=== PATIENT | male | born 1970 | race African-American/Black ===

== ENCOUNTER 2018-09-26 13:40 | Observation (INO) ==
[2018-09-26] MEDS ORDERED: BENADRYL IV ONE (14:07)
[2018-09-26] MEDS ORDERED: EPINEPHRINE IM ONE (14:07)
[2018-09-26] MEDS ORDERED: SOLU-MEDROL IV ONE (14:07)
--- NOTE | 2018-09-26 14:35 | Diag Imaging Result Doc PS360 ---
EXAM: CHEST-1 VIEW 09/26/2018 HISTORY: angioedema TECHNIQUE: AP portable at 1441 COMMENT: There is no evidence of acute cardiac or pulmonary disease. Compared to 10/10/2015 there has been no significant change in the appearance of the chest. IMPRESSION: No evidence of acute disease. Electronically signed by Laron Paredes 09/26/2018 2:32 PM
--- NOTE | 2018-09-26 14:37 | PROVIDER DOCUMENTATION ---
This chart was entered by Ja Chen Scribe, acting as scribe for Mahesh Warren MD. HPI-General Adult - General Chief Complaint: General Adult Stated Complaint: ALLERGIC REACTION Time Seen by Provider: 09/26/18 13:58 Source: patient Allergies/Adverse Reactions: Patient Allergies Allergy/AdvReac Type Severity Reaction Status Date / Time No Known Allergies Allergy Verified 05/01/15 16:38 Home Medications: Home Medication List Medication Instructions Recorded Confirmed Last Taken Type Lisinopril/Hydrochlorothiazide 1 each PO DAILY #30 tablet 01/19/15 03/20/15 03/19/15 10:30 Rx [Lisinopril-Hctz 10-12.5 mg Tab] Oxycodone E.r. [Oxycontin] 10 mg PO TID PRN PRN 01/19/15 03/20/15 01/19/15 History Escitalopram Oxalate [Lexapro] 20 mg PO DAILY 03/20/15 03/20/15 03/19/15 10:30 History Methocarbamol [Robaxin-750] 750 mg PO TID PRN PRN #30 tablet 03/20/15 Unknown Rx Naproxen 500 mg PO BID AC #30 tablet 03/20/15 Unknown Rx Hydrocodone/Acetaminophen [[place] 1 each PO Q6H #14 tablet 10/10/15 Unknown Rx 5-325 Tablet] - History of Present Illness -Gen Adult Nature of Presenting Problems: Pt is a 48 yom who presents to the ED with a CC of severe allergic reaction. Pt states he took a Lisinopril today and his face and mouth began swelling after taking it. Pt reports a hx of HTN, PTSD, and depression. Location of Pain/Injury: reports: head, face, mouth Quality of Pain: reports: other (Swelling) Severity: reports: severe Onset/Duration: reports: just prior to arrival, 1/2 hour ago Timing: reports: still present Associated Symptoms: reports: other (Swelling) Similar Symptoms Previously?: No Recently seen or treated by another doctor?: No Review of Systems - Adult - REVIEW OF SYSTEMS - ADULT Constitutional: reports: see HPI Eyes: reports: no symptoms reported Ears, Nose, Mouth & Throat: reports: see HPI, mouth swelling Cardiovascular: reports: no symptoms reported Respiratory: reports: no symptoms reported Gastrointestinal: reports: no symptoms reported Genitourinary: reports: no symptoms reported Musculoskeletal: reports: no symptoms reported Integumentary: reports: see HPI Neurological: reports: no symptoms reported Psychiatric: reports: no symptoms reported Endocrine: reports: no symptoms reported Hematologic/Lymphatic: reports: no symptoms reported Allergic/Immunologic: reports: see HPI, allergic reactions All Other Systems: Reviewed and Negative Past History - Adult - PAST MEDICAL HISTORY-ADULT Review of Records: reports: Old Records Reviewed, Nursing Assessment Review, Medications Reviewed, Social history reviewed & non-contributory. Major Childhood Illnesses: reports: denies history Cardiovascular: reports: HTN Respiratory: reports: denies history Gastrointestinal: reports: denies history Obstetrical/Gynecological: reports: denies history Genitourinary: reports: denies history Musculoskeletal: reports: denies history Neurological: reports: denies history Psychiatric: reports: depression, ptsd Endocrine/Immune: reports: denies history Other Conditions: reports: skin disorder - PRIOR SURGERIES/PROCEDURES Surgical/Procedure History: reports: orthopedic (extremity) (Left knee) - PRIOR HOSPITALIZATIONS Prior Hospitalizations: reports: none - IMMUNIZATION STATUS Childhood Immunizations: See Nurse Assessment Flu Vaccine: See Nurse Assessment - FAMILY HISTORY Family History: reviewed, not pertinent - SOCIAL HISTORY Smoking: cigarettes, less than 1 pack/day Substance Use: alcohol Alcohol Use Frequency: occasionally Physical Exam-General - PHYSICAL EXAM-ADULT Initial Vital Signs Reviewed: Yes - CONSTITUTIONAL General Appearance: alert, moderate distress - EYES Eyes: PERRL/EOMI, pink conjunctivae - NECK Neck: non-tender, full range of motion - RESPIRATORY Respiratory: chest non-tender, lungs clear, normal breath sounds, no pleuratic chest pain, no respiratory distress - CARDIOVASCULAR Cardiovascular: normal peripheral pulses, regular rate, rhythm, no edema, no gallop, no JVD - GASTROINTESTINAL (ABDOMEN) Abdominal Exam: non tender, soft - MUSCULOSKELETAL Extremity: normal range of motion, non-tender - SKIN Integumentary: swelling - NEUROLOGIC Neurologic: grossly normal - PSYCHIATRIC Psych/Mental Status: normal mood/affect, normal thought content, normal thought process, oriented x 3 Progress - PLAN OF CARE/RESULTS Progress/Plan/Lab Results: Vital Signs - 8 hr 09/26/18 13:46 Temperature 98.4 F Pulse Rate 81 Respiratory Rate 18 Blood Pressure 156/99 O2 Sat by Pulse Oximetry 96 Orders Category Date Time Status Diphenhydramine [Benadryl] Med 09/26/18 14:07 Once 25 mg IV NOW ONE Epinephrine Med 09/26/18 14:07 Once 0.3 mg IM NOW ONE Methylprednisolone Sod Succ [Solu-Medrol] Med 09/26/18 14:07 Once 125 mg IV NOW ONE At recheck pt still has no oral airway edema and denies any difficulty swallowing or breathing. - CONSULTS/PCP/HOSPITALIST Notification #1 *Consult/PCP/Hospitalist*: Wendy TAXI DANCER for Dr Mark Time Discussed: 14:34 Consult Disposition: Will see in ED (transfer to [facility] [place] for ICU admit.), Admit Departure - Departure Date of Disposition Decision: 09/26/18 Time of Disposition Decision: 14:35 DIAGNOSIS: Angioedema Disposition: ADMITTED INPATIENT 09 Certified Medical Emergency: Emergent Condition: Serious Additional Freetext Instructions: ED Follow Up Instructions: You have been treated by a care provider in the Emergency Department. These instructions are being provided to you so you can have an understanding of how to care for yourself upon discharge. Upon discharge from the Emergency Department, you are responsible for making arrangements for follow-up care by a physician of your choice. Take all prescribed medications as directed. Return to the Emergency Department immediately for any new or worsening symptoms. You may call the Physician Referral phone number at [phone] to obtain a list of Physicians who are taking new patients. Referrals and Follow-Ups: Harika David [Primary Care Provider] - - Critical Care Note This patient required my direct & personal management of CC.: Yes Total Time (mins): 45 Critical Care Statement: This patient required my direct personal management to treat or rule out processes, the absence of which, could potentiallly result in sudden, clinically significant life or limb threatening deterioration. Attestation - Physician/ CEE Attestation Patient care was provided by Advanced Practice Provider:: No The physician spent face to face time with patient:: Yes Advanced Practice Provider documentation review:: Supervising physician onsite and consulted in the evaluation and care of this patient. The physician did have a face to face encounter with the patient. This chart was documented by the indicated scribe, (Ja Chen Scribe) and accurately reflects the services I performed and decisions made by me, Mahesh Warren MD, as attested by the provider's signature.
[2018-09-26 15:10] LABS: BASO# 0.03 X1000 (0.0-0.2); BASO% 0.3 % (0.0-0.8); EOS# 0.33 X1000 (0.0-0.7); EOS% 3.6 % (0.0-10.0); HEMATOCRIT 43.7 % (42.0-52.0); HEMOGLOBIN 15.1 g/dL (14.0-18.0); IMM GRAN# 0.01 X1000 (0.0-0.04); IMM GRAN% 0.1 % (0.0-0.5); LYMPH# 3.03 X1000 (1.2-3.4); LYMPH% 33.2 % (20.5-51.1); MCH 30.4 PG (27-31); MCHC 34.6 g/dL (33-37); MCV 88.1 FL (81-99); MONO# 0.88 X1000 (0.11-0.59); MONO% 9.6 % (1.7-9.3); MPV 10.2 FL (7.4-10.4); NEUT# 4.86 X1000 (1.4-6.5); NEUT% 53.2 % (42.2-75.2); PLT 303 X1000 (130-400); RBC 4.96 XMIL (4.7-6.1); RDW 12.6 % (11.5-14.5); WBC 9.14 X1000 (4.8-10.8)
[2018-09-26 15:19] LABS: SODIUM 138 mmol/L (136-145)
[2018-09-26 15:20] LABS: AGAP 12; ALBUMIN 4.6 g/dL (3.5-5.0); ALKALINE PHOSPHATASE 64 U/L (32-122); BUN 14 mg/dL (8-22); CHLORIDE 100 mmol/L (98-107); COSMO 276; CREATININE 1.1 mg/dL (0.7-1.2); ESTIMATED GFR > 60; GLUCOSE 101 mg/dL (70-104); GOT 27 U/L (10-34); GPT 17 U/L (10-44); POTASSIUM 4.3 mmol/L (3.5-5.1); TCO2 26 mmol/L (25-35); TOTAL PROTEIN 7.5 g/dL (6.3-8.3)
[2018-09-26] MEDS ORDERED: ZANTAC 50 MG in NS 50 ML IV ONE (15:43)
[2018-09-26 15:46] LABS: INR 0.94
[2018-09-26] MEDS ORDERED: ZOFRAN IV PRN (15:50)
[2018-09-26] MEDS ORDERED: ALBUTEROL NEB INH PRN (15:52)
[2018-09-26] MEDS ORDERED: BENADRYL IV PRN (16:15)
[2018-09-26] MEDS ORDERED: SODIUM CHLORIDE 0.9% INJ SCH (16:15)
[2018-09-26] MEDS ORDERED: CATAPRES PO PRN ×2 (16:35→16:39)
[2018-09-26] MEDS: PEPCID IV SCH ×2 (17:05)
[2018-09-26] MEDS: NS 1,000 ML IV SCH ×2 (17:06→23:20)
[2018-09-26] MEDS ORDERED: SOLU-MEDROL IV SCH (20:00)
[2018-09-26] MEDS: SOLU-MEDROL IV SCH (20:58)
[2018-09-27] MEDS: SOLU-MEDROL IV SCH (04:14)
[2018-09-27] MEDS: PEPCID IV SCH (04:15)
--- NOTE | 2018-09-27 06:44 | Diag Imaging Result Doc PS360 ---
CHEST-PORTABLE - 09/27/2018 INDICATION: follow up COMPARISON: None FINDINGS: The lungs are normally expanded and clear. Heart size and mediastinal contours are normal. No pneumothorax or pleural effusion. IMPRESSION: Negative exam. Electronically signed by Yasmani Robertson 09/27/2018 6:42 AM
[2018-09-27 06:48] LABS: HEMATOCRIT 42.1 % (42.0-52.0); HEMOGLOBIN 14.9 g/dL (14.0-18.0); IMM GRAN# 0.02 X1000 (0.0-0.04); IMM GRAN% 0.2 % (0.0-0.5); LYMPH# 0.78 X1000 (1.2-3.4); LYMPH% 6.3 % (20.5-51.1); MCH 30.9 PG (27-31); MCHC 35.4 g/dL (33-37); MCV 87.3 FL (81-99); MONO# 0.44 X1000 (0.11-0.59); MONO% 3.6 % (1.7-9.3); MPV 10.3 FL (7.4-10.4); NEUT# 11.15 X1000 (1.4-6.5); NEUT% 89.9 % (42.2-75.2); PLT 297 X1000 (130-400); RBC 4.82 XMIL (4.7-6.1); RDW 12.4 % (11.5-14.5); WBC 12.39 X1000 (4.8-10.8)
[2018-09-27 07:00] LABS: LYMPHS 6 % (21-51); MONO 6 % (1-9); SEGS 86 % (42-75)
[2018-09-27 07:15] LABS: AGAP 10; ALB/GLOB RATIO 1.4; ALKALINE PHOSPHATASE 57 U/L (32-122); BUN 12 mg/dL (8-22); CALCIUM 9.1 mg/dL (8.8-10.2); CHLORIDE 105 mmol/L (98-107); COSMO 275; ESTIMATED GFR > 60; GLUCOSE 165 mg/dL (70-104); GOT 19 U/L (10-34); GPT 15 U/L (10-44); MAGNESIUM 2.1 mg/dL (1.5-2.7); POTASSIUM 4.2 mmol/L (3.5-5.1); SODIUM 136 mmol/L (136-145); TCO2 21 mmol/L (25-35); TOTAL BILIRUBIN 0.35 mg/dL (0.20-1.00); TOTAL PROTEIN 6.9 g/dL (6.3-8.3)
[2018-09-27] MEDS: NS 1,000 ML IV SCH (07:30)
[2018-09-27 08:27] VITALS: BP 149/90
--- NOTE | 2018-09-27 08:46 | HISTORY AND PHYSICAL ---
HISTORY OF PRESENT ILLNESS: Mr. Quiñonez stated that this morning he was in a normal state of health, no problems yesterday, but this morning he woke up, and he noticed his lips were swelling. He had no trouble with his airway or stridor. No rash. No abdominal pain. No fever. He is on lisinopril and has been on it for several years for blood pressure. PAST MEDICAL HISTORY: 1. Hypertension for which he is on lisinopril. 2. Recently started some Prozac for depression. PAST SURGICAL HISTORY: He has had his left knee operated on twice for tear on the ACL. REVIEW OF SYSTEMS: Constitutional: Does not report any weight gain or loss. No fever or chills. HEENT: No change in visual or hearing acuity. Neck: No cervical adenopathy. Respiratory: No increased work of breathing or dyspnea. Cardiovascular: No chest pain or tachy palpitation. Gastrointestinal and Genitourinary: No gross hematuria, dysuria. No abdominal pain. Neurologic: No focal complaints. Endocrinologic/Hematologic: No significant history. PHYSICAL EXAMINATION: VITAL SIGNS: Temperature 98.5 degrees, pulse 70, respirations 14, blood pressure 167/103. EYES: Pupils equal and round. LUNGS: Clear in all lung godfrey. CARDIOVASCULAR: Regular rhythm and rate without murmur or S3. ABDOMEN: Soft. SKIN: Warm and dry. His lips are symmetrically swollen. No swelling that I can appreciate in the epiglottis or in the oral and nasal mucosa. Breathing comfortably. Requesting something to eat and drink. HEIGHT/WEIGHT: Height 6 feet 3 inches, weight 223 pounds. EYES: Pupils are equal and round. NECK: CVP less than 6 cm from the left atrium. LUNGS: Clear in all lung godfrey. CARDIOVASCULAR: Regular rhythm and rate without murmur or S3. ABDOMEN: Soft, nondistended, nontender. EXTREMITIES: Without clubbing, cyanosis, or edema. SKIN: Without any rashes. HEENT: Oral and nasal mucosa unremarkable except for swelling and edema of his lips. DIAGNOSTIC STUDIES: Lab work: White count 9140, hematocrit is 43, platelet count is 303,000. Sodium 138, potassium 4.3, chloride 100, BUN 14, creatinine 1.1, AST is 27, ALT is 17, albumin is 4.6. Pro-time is 13, PTT is 29. Chest x-ray: No evidence of acute disease. No infiltrate. Cardiomediastinal silhouette unremarkable. HOME MEDICINES: Prozac 20 mg a day, Flomax 0.4 mg a day, and he was on lisinopril. ASSESSMENT AND PLAN: 1. Angioedema, really confined to his lips, oral mucosa. No airway obstruction. No sign of stridor. We will stop his TOMAS inhibitor, and we will probably put him on Norvasc for blood pressure control. We will give him some Solu-Medrol, some antihistamine with Benadryl, and he is on IV Pepcid 20 mg IV q.12 h. 2. Hypertension. We will probably start him on Norvasc. We will kind of follow his blood pressure. I think for right now we will give him some clonidine 0.2 mg p.o. q.4 h. p.r.n. systolic blood pressure greater than 180 or diastolic greater than 100. cc: Miguel A Queen MD
--- NOTE | 2018-09-27 08:48 | DISCHARGE SUMMARY ---
ADMISSION DATE: 09/26/2018 DISCHARGE DATE: 09/27/2018 HOSPITAL COURSE: He was admitted with angioedema and he had been on lisinopril for several years. He had no airway compromise, no stridor, and his lips were markedly diminished in swelling, and felt he could go home. He was eating and swallowing fine and no distress. We will put him on Norvasc for his blood pressure. I think I will put him on 5 mg of Norvasc and will do that twice a day. He will follow up with his primary care physician. I want him to check ambulatory blood pressures, and the goal is to keep his blood pressure averaged below 150/90 for starters. I will also give a Medrol Dosepak and he can take some Benadryl. I cautioned that the Benadryl could make him sleepy. X-rays: A chest x-ray was unremarkable. Labs: His lab is unremarkable. His renal function good. No elevation of liver enzymes. DISCHARGE MEDICATIONS: He will take his Prozac. He will take Norvasc 5 mg twice a day, and continue his Flomax 0.4 mg a day with a Medrol Dosepak. cc: Miguel A Queen MD
--- NOTE | 2018-09-27 08:58 | HISTORY AND PHYSICAL ---
HISTORY OF PRESENT ILLNESS: Mr. Quiñonez was admitted on 09/26/2018. He stated that the morning of 09/26/2018, he woke up and his lips were swollen and continued to stay swollen and progressed. He never had any trouble with breathing. There was no stridor. No fever or chills. No rash. No urticaria. He did not have elevation of liver enzymes. His lab was pretty unremarkable. White count 9140, hematocrit 43, hemoglobin 15. Sodium 138, potassium 4.3, chloride 100, BUN 14, creatinine 1.1. Pro-time is 13, PTT was 29. Chest x-ray was unremarkable, no evidence of acute disease. PAST MEDICAL HISTORY: He has been treated for hypertension. PAST SURGICAL HISTORY: He has had, I think, 2 surgeries on his left knee for anterior cruciate ligament tear. No other surgical history. ALLERGIES: He had no known drug allergies. MEDICATIONS: He has been on lisinopril and was recently started on some Prozac. He has been on the lisinopril for several years. He also takes Flomax so I think he does have some symptoms of benign prostatic hypertrophy. REVIEW OF SYSTEMS: General: No weight gain or loss. No fever or chills. HEENT: Unremarkable. No change in visual or hearing acuity. No trouble with upper respiratory congestion or postnasal drainage. Respiratory: No increased work of breathing or dyspnea. Cardiovascular: No chest pain or tachy palpitation. GI/: Unremarkable. Musculoskeletal/Neurologic: No significant complaints. Hematologic/Endocrinologic: No significant history. ASSESSMENT/PLAN: Angioedema confined to his oral mucosa, his lips. No airway discomfort. We did give him some Benadryl. I think he was given some epinephrine, 1 time dose, but he never really did have airway issues. He was given epi 0.3 mg IM, 1 time dose. He was put on Zantac IV and put him on methylprednisone, loaded him with 125 mg and then 60 mg q.6 hours. We will watch him in the intensive care unit. The plan is to watch his blood pressure as well. I will switch him to Norvasc. We gave him clonidine 0.2 mg q.4 hours p.r.n. systolic blood pressure greater than 180 or diastolic greater than 100. cc: Miguel A Queen MD
== END 2018-09-27 09:14 | disposition home or self-care (01) | DRG 916 ==
LOC: P.ED 13:40 → ICU 15:38 → SUATTDRO 15:38 → INTOOBSV 15:38
PROVIDERS: ATTEND Emergency Medicine